=== PATIENT | female | born 1975 | race Caucasian/White ===

== ENCOUNTER 2017-06-08 05:57 | Emergency (ER) | payer MEDICAID | END 2017-06-08 08:19 | disposition home or self-care (01) | LOC: FTE 05:57 | DX: J06.9 Acute upper respiratory infection, unspecified (principal) | CPT/HCPCS: 99283; Z7502 ==

== ENCOUNTER 2017-09-02 08:57 | Emergency (ER) | payer MEDICAID ==
[2017-09-02] MEDS: HYDROCODONE/APAP (5/325) TAB PO (09:40)
== END 2017-09-02 10:33 | disposition home or self-care (01) ==
LOC: FTE 08:57
DX: M79.672 Pain in left foot (principal)
CPT/HCPCS: 73630; 73630-LT; 99283-25